=== PATIENT | male | born 1975 ===

== ENCOUNTER 2017-01-30 14:41 | Emergency (ER) | payer OTHER | END 2017-01-30 18:47 | disposition left against medical advice (07) | LOC: H.ER 14:41 → H.EDERROR 14:41 | DX: S69.91XA Unspecified injury of right wrist, hand and finger(s), initial encounter (principal); W23.0XXA Caught, crushed, jammed, or pinched between moving objects, initial encounter; Y93.9 Activity, unspecified ==